=== PATIENT | female | born 1970 | race Caucasian/White ===

== ENCOUNTER 2017-10-15 06:51 | Day surgery (SDC) | payer BC, SELFPAY | END 2017-10-16 11:15 | disposition home or self-care (01) | PROVIDERS: PCP Orthopaedic Surgery; Visit Provider Orthopaedic Surgery Orthopaedic Surgery of the Spine | DX: M48.02 Spinal stenosis, cervical region (principal); M47.22 Other spondylosis with radiculopathy, cervical region; E66.9 Obesity, unspecified; Z87.891 Personal history of nicotine dependence | CPT/HCPCS: 22551; 22853 ×2; 22552; 36415; 72040; 76001; 82962; 85027; 97116; 97161; 97165; 97530; 99406; C1776; G8978; G8979; G8980; J0131; J1100; J2060; J2250; J2270; J2405; J2704; J3010; J3410 ==

== ENCOUNTER → 2020-05-18 14:09 | Outpatient (CLI) | payer OTHER, SELFPAY ==
--- NOTE | 2020-05-18 | DI.MRI.S_ITS ---
PROCEDURE: MR LUMBAR SPINE WO CON INDICATIONS: Radiculopathy, lumbar region TECHNIQUE: Noncontrast sagittal T1 spin echo and T2 fast echo, sagittal STIR, axial T1 and T2 fast spin echo through the lumbar spine. In cases with scoliosis, additional coronal T2 fast spin echo may be performed. COMPARISON: None. FINDINGS: Image quality: Diagnostic, with note made of motion artifact. Alignment and Curvature: There is minimal retrolisthesis at L1-L2 and L2-L3. Bone Marrow: Marrow is of normal overall signal. No acute vertebral body compression fractures. Spinal Cord: Conus medullaris terminates at the L1 level. Visualized cord demonstrates normal signal and size. Paraspinous Soft Tissues: No paravertebral masses. T12-L1: Normal appearance. L1-L2: Moderate loss of disc height is seen. Loss of disc signal is seen. Moderate loss of disc height is seen. Loss of disc signal is seen. Mild generalized disc bulge is seen. No significant neural foraminal narrowing is seen. Mild central canal narrowing is seen. L2-L3: Mild loss of disc height is seen. Loss of disc signal is seen. Moderate disc bulge is seen, which is eccentric to the left. Mild to moderate facet hypertrophy is seen. There is [id number] right-sided and moderate left-sided neural foraminal narrowing seen. At least moderate central canal narrowing is seen. L3-L4: The disc height is well-preserved. Loss of disc signal is seen at this level. Moderate generalized disc bulge is seen. Moderate facet joint hypertrophy is seen. Mild bilateral neural foraminal narrowing is seen. Moderate central canal narrowing is seen. L4-L5: The disc height is well-preserved. Loss of disc signal is seen at this level. Moderate generalized disc bulge is seen. Moderate facet joint hypertrophy is seen. There is mild right-sided and moderate left-sided neural foraminal narrowing seen. There is a degree of compression seen upon the exiting left L4 nerve root. At least moderate central canal narrowing is seen. L5-S1: Mild loss of disc height is seen. Loss of disc signal is seen. Mild to moderate disc bulge is seen, with a mild central disc protrusion. Mild facet joint hypertrophy is seen. No significant neural foraminal or central canal narrowing can be seen. 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 IMPRESSION: Multiple levels of lumbar spine degenerative change are seen, including a mild degree of compression upon the exiting left L4 nerve root. At least moderate central canal narrowing is seen at L2-L3 and L4-L5, with moderate central canal narrowing at L3-L4. Dictated by: Gaurang Tran M.D. on 05/18/2020 at 14:42 Approved by: Gaurang Tran M.D. on 05/18/2020 at 14:47
== END ==
PROVIDERS: PCP Orthopaedic Surgery; Referring Provider Orthopaedic Surgery; Visit Provider Orthopaedic Surgery
DX: M47.26 Other spondylosis with radiculopathy, lumbar region (principal); M47.27 Other spondylosis with radiculopathy, lumbosacral region; M48.061 Spinal stenosis, lumbar region without neurogenic claudication
CPT/HCPCS: 72148

== ENCOUNTER 2020-10-23 16:40 | Emergency (ER) | payer OTHER, SELFPAY ==
[2020-10-23 16:52] VITALS: BP 138/96; PULSE 83; RESP 18; TEMP 37.1; O2SAT 99; BMI 34.8
[2020-10-23 19:12] LABS: COVID19 -Nasal RAPID POSITIVE (Negative)
--- NOTE | 2020-10-23 22:01 | PC.NURSE ---
Pt had left [facility], before aware of test results. Called results to pt. Pt aware she is covid positive. Instructed to isolate and if she feels likes she needs to be seen we would be happy to see her. pt verbalized understanding.
== END 2020-10-23 20:53 | disposition left against medical advice (07) ==
PROVIDERS: Emergency Medicine; Emergency Provider Emergency Medicine; PCP Orthopaedic Surgery
DX: U07.1 COVID-19 (principal)
CPT/HCPCS: 87635; 99281; C9803

== ENCOUNTER → 2020-12-03 15:31 | Outpatient (CLI) | payer OTHER, SELFPAY ==
--- NOTE | 2020-12-03 15:35 | DI.MRI.S_ITS ---
PROCEDURE: MR LUMBAR SPINE WO CON INDICATIONS: SPINAL STENOSIS,LUMBAR REGION WITHOUT NEUROGENIC TECHNIQUE: Noncontrast sagittal T1 spin echo and T2 fast echo, sagittal STIR, axial T1 and T2 fast spin echo through the lumbar spine. In cases with scoliosis, additional coronal T2 fast spin echo may be performed. COMPARISON: [facility], RF, LUMBAR SPINE INTERIAMINAR, 07/07/2020, 15:57. [facility], MR, MR LUMBAR SPINE WO CON, 05/18/2020, 14:28. FINDINGS: Image quality: Excellent. Alignment and Curvature: There is mild retrolisthesis seen at the L2-L3 level. Bone Marrow: Marrow is of normal overall signal. No acute vertebral body compression fractures. Spinal Cord: Conus medullaris terminates at the L1 level. Visualized cord demonstrates normal signal and size. Paraspinous Soft Tissues: No paravertebral masses. T12-L1: Normal appearance. L1-L2: At least moderate loss of disc height and disc signal can be seen. Mild generalized disc bulge is seen. No significant neural foraminal narrowing is seen. Mild central canal narrowing is seen. Stable from the prior study. L2-L3: Moderate loss of disc height is seen. Loss of disc signal is seen. At least moderate disc bulge is seen, which is eccentric to the left. There is a central disc protrusion. Mild facet joint hypertrophy is seen. Mild to moderate bilateral neural foraminal narrowing can be seen. Moderate central canal narrowing is seen. When comparison is made with the prior images, these degenerative changes are mildly progressed. L3-L4: The disc height is well-preserved. Loss of disc signal is seen at this level. Mild to moderate disc bulge is seen, with a mild central disc protrusion. Moderate facet joint hypertrophy is seen. Mild bilateral neural foraminal narrowing is seen. Mild to moderate central canal narrowing is seen. When comparison is made with the prior images, these findings are similar. L4-L5: The disc height is well-preserved. Loss of disc signal is seen at this level. Moderate disc bulge is seen, with a central disc protrusion. At least moderate facet hypertrophy is seen. Associated hypertrophy of the ligamentum flavum can be seen. Fluid is seen within the facet joints themselves. Moderate bilateral neural foraminal narrowing can be seen, left worse than right. Moderate central canal narrowing is seen. Stable from the prior study. L5-S1: The disc height is well-preserved. Loss of disc signal is seen at this level. Mild generalized disc bulge is seen. Mild facet joint hypertrophy is seen. No significant neural foraminal or central canal narrowing can be seen. Stable from the prior study. 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 IMPRESSION: Mild progression of degenerative change at L2-L3. Otherwise, the degenerative changes are similar to the prior MRI. Dictated by: Gaurang Tran M.D. on 12/03/2020 at 15:40 Approved by: Gaurang Tran M.D. on 12/03/2020 at 15:47
== END ==
PROVIDERS: PCP Orthopaedic Surgery; Referring Provider Orthopaedic Surgery Orthopaedic Surgery of the Spine; Visit Provider Orthopaedic Surgery Orthopaedic Surgery of the Spine
DX: M48.061 Spinal stenosis, lumbar region without neurogenic claudication (principal); M51.36 Other intervertebral disc degeneration, lumbar region
CPT/HCPCS: 72148